=== PATIENT | female | born 1995 | race Caucasian/White ===

== ENCOUNTER 2020-06-30 12:37 | Emergency (ER) | payer OTHER ==
[~2020-06-30] VITALS: Ht 154.9 cm; Wt 99.3 kg
[2020-06-30] MEDS ORDERED: IV NORMAL SALINE 1,000ML 1,000 ML IV ONE (13:30)
[2020-06-30 13:41] LABS: BACTERIA,URINE 0 /HPF (0-FEW); BILIRUBIN,URINE NEG (NEG); CLARITY,URINE CLEAR; COLOR,URINE YELLOW; GLUCOSE,URINE NEG (NEG); NITRITE,URINE NEG (NEG); RBC,URINE OCC /HPF (0-2); SQUAMOUS EPITHELIAL CELL,UR FEW /LPF; UROBILINOGEN,URINE 0.2 mg/dL (0.2 mg/dL); WBC,URINE OCC /HPF (0-4)
[2020-06-30 13:48] LABS: BASO # 0.2 x10^3/uL (0.0-0.2); BASO % 1 % (0-3); EOS # 0.1 x10^3/uL (0.0-0.7); EOS % 1 % (0-3); HEMATOCRIT 27.2 % (36.0-47.0); LYMPH % 18 % (24-48); MEAN CORPUSCULAR HEMOGLOBIN 29 pg (25-35); MEAN CORPUSCULAR HGB CONC 33 g/dL (31-37); MEAN CORPUSCULAR VOLUME 88 fL (79-100); MONO # 0.7 x10^3/uL (0.0-1.1); MONO % 4 % (0-9); NEUT # 12.9 x10^3uL (1.8-7.7); NEUT % 76 % (31-73); PLATELET COUNT 284 x10^3/uL (140-400); RED BLOOD COUNT 3.08 x10^6/uL (3.50-5.40); RED CELL DISTRIBUTION WIDTH 12.6 % (11.5-14.5); WHITE BLOOD COUNT 16.9 x10^3/uL (4.0-11.0)
[2020-06-30 13:55] LABS: CALCIUM 8.6 mg/dL (8.5-10.1); CREATININE 0.8 mg/dL (0.6-1.0); GFR 87.4; POTASSIUM 4.2 mmol/L (3.5-5.1)
[2020-06-30 14:09] LABS: % EOS 3 % (0-5); % LYMPHS 23 % (24-48); % MONOS 3 % (0-10); % SEGS 71 % (35-66)
[2020-06-30 14:10] LABS: ANISOCYTOSIS SLIGHT; PLT ESTIMATE ADEQUATE (ADEQUATE)
--- NOTE | 2020-06-30 14:30 | RAD ---
INDICATION: Reason: heavy vaginal bleeding, dilated cervix / Spl. Instructions: / History: COMPARISON: None. TECHNIQUE: Grayscale and color ultrasound images uterus and adnexa. Transabdominal and transvaginal images obtained. Transvaginal images were needed to better visualize structures that were limited on transabdominal imaging. FINDINGS: Uterus: 81 x 55 x 38 mm. Endometrial Stripe: 8 mm. Right Ovary: 40 x 39 x 29 mm. Left Ovary: 34 x 28 x 17 mm. Vascular flow identified to bilateral ovaries. 32 mm right ovarian cyst. Nabothian cysts. IMPRESSION: * Cystic structures at the cervix which can be seen with nabothian cyst formation. * Right ovarian cyst is seen. * Endometrial stripe currently measures approximately 8 mm. Electronically signed by: Yossi Hart MD (06/30/2020 2:27 PM) [id number]
[2020-06-30 15:02] VITALS: BP 131/91
[2020-06-30] MEDS ORDERED: MEDR10TA PO (15:04)
--- NOTE | 2020-06-30 15:04 | PHYS DOC ---
Past History Past Medical History: Diabetes, Hypertension, Kidney Stones Past Surgical History: , Other Additional Past Surgical Histo: KIDNEY STONES Alcohol Use: None General Adult EDM: Chief Complaint: VAGINAL BLEEDING HPI: HPI: Patient is a 24-year-old female who presents to the emergency department with complaints of heavy vaginal bleeding for the last 4 days. Patient states she has been saturating a tampon and a pad every hour for the last 4 days. Last night she was in the bathroom when she got up off the toilet she passed out. Patient reports that she has felt dizzy with position changes. She denies any nausea, vomiting, diarrhea, abdominal pain, shortness of breath, fever, cough, or fatigue. She states she has had heavy periods for a long time but she does not currently have an DEVULCANIZER TENDER. Patient states she recently relocated to this area from [place]. She denies any irregular vaginal discharge prior to the onset of the bleeding. She denies any dysuria, hematuria, or increased urinary frequency. The patient currently denies any pain. Review of Systems: Review of Systems: Complete ROS is negative unless otherwise noted in HPI. Current Medications: Current Meds: Current Medications Medications (Trade) Dose Ordered Sig/Nicole Start Time Stop Time Status Last Admin Dose Admin Sodium Chloride 1,000 ml @ 1,000 mls/hr 1X ONCE 06/30/20 13:30 06/30/20 14:29 DC 06/30/20 13:36 1,000 MLS/HR Allergies: Allergies: Allergies Coded Allergies Type Severity Reaction Last Updated Verified No Known Drug Allergies 06/30/20 No Physical Exam: PE: See Above Constitutional: Well developed, well nourished, no acute distress, non-toxic appearance. HENT: Normocephalic, atraumatic, bilateral external ears normal, nose normal. Eyes: PERRLA, EOMI, conjunctiva normal, no discharge. Neck: Normal range of motion, no stridor. 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 Extremities: No cyanosis, ROM intact, no edema. Neurologic: Alert and oriented X 3, no focal deficits noted. Psychologic: Affect normal, judgement normal, mood normal. Current Patient Data: Labs: Laboratory Tests Test 06/30/20 13:21 06/30/20 13:25 06/30/20 13:36 Urine Collection Type U cath Urine Color Yellow Urine Clarity Clear Urine pH 5.5 Urine Specific [place] >=1.030 Urine Protein Trace (NEG-TRACE) Urine Glucose (UA) Neg mg/dL (NEG) Urine Ketones (Stick) 15 mg/dL (NEG) Urine Blood Neg (NEG) Urine Nitrite Neg (NEG) Urine Bilirubin Neg (NEG) Urine Urobilinogen Dipstick 0.2 mg/dL (0.2 mg/dL) Urine Leukocyte Esterase Neg (NEG) Urine RBC Occ /HPF (0-2) Urine WBC Occ /HPF (0-4) Urine Squamous Epithelial Cells Few /LPF Urine Bacteria 0 /HPF (0-FEW) POC Urine HCG, Qualitative hcg negative (Negative) White Blood Count 16.9 x10^3/uL (4.0-11.0) H Red Blood Count 3.08 x10^6/uL (3.50-5.40) L Hemoglobin 9.0 g/dL (12.0-15.5) L Hematocrit 27.2 % (36.0-47.0) L Mean Corpuscular Volume 88 fL (79-100) Mean Corpuscular Hemoglobin 29 pg (25-35) Mean Corpuscular Hemoglobin Concent 33 g/dL (31-37) Red Cell Distribution Width 12.6 % (11.5-14.5) Platelet Count 284 x10^3/uL (140-400) Neutrophils (%) (Auto) 76 % (31-73) H Lymphocytes (%) (Auto) 18 % (24-48) L Monocytes (%) (Auto) 4 % (0-9) Eosinophils (%) (Auto) 1 % (0-3) Basophils (%) (Auto) 1 % (0-3) Neutrophils # (Auto) 12.9 x10^3uL (1.8-7.7) H Lymphocytes # (Auto) 3.0 x10^3/uL (1.0-4.8) Monocytes # (Auto) 0.7 x10^3/uL (0.0-1.1) Eosinophils # (Auto) 0.1 x10^3/uL (0.0-0.7) Basophils # (Auto) 0.2 x10^3/uL (0.0-0.2) Segmented Neutrophils % 71 % (35-66) H Lymphocytes % 23 % (24-48) L Monocytes % 3 % (0-10) Eosinophils % 3 % (0-5) Platelet Estimate Adequate (ADEQUATE) Anisocytosis Slight Sodium Level 140 mmol/L (136-145) Potassium Level 4.2 mmol/L (3.5-5.1) Chloride Level 103 mmol/L (98-107) Carbon Dioxide Level 23 mmol/L (21-32) Anion Gap 14 (6-14) Blood Urea Nitrogen 9 mg/dL (7-20) Creatinine 0.8 mg/dL (0.6-1.0) Estimated GFR (Cockcroft-Gault) 87.4 Glucose Level 177 mg/dL (70-99) H Calcium Level 8.6 mg/dL (8.5-10.1) Vital Signs: Vital Signs Date Time Temp Pulse Resp B/P (MAP) Pulse Ox O2 Delivery O2 Flow Rate FiO2 06/30/20 14:45 105 18 160/96 (117) 99 Room Air 06/30/20 12:56 97.1 EKG: EKG: [] Radiology/Procedures: Radiology/Procedures: PROCEDURE: US PELVIS W/TV INDICATION: Reason: heavy vaginal bleeding, dilated cervix / Spl. Instructions: / History: COMPARISON: None. TECHNIQUE: Grayscale and color ultrasound images uterus and adnexa. Transabdominal and transvaginal images obtained. Transvaginal images were needed to better visualize structures that were limited on transabdominal imaging. FINDINGS: Uterus: 81 x 55 x 38 mm. Endometrial Stripe: 8 mm. Right Ovary: 40 x 39 x 29 mm. Left Ovary: 34 x 28 x 17 mm. Vascular flow identified to bilateral ovaries. 32 mm right ovarian cyst. Nabothian cysts. IMPRESSION: * Cystic structures at the cervix which can be seen with nabothian cyst formation. * Right ovarian cyst is seen. * Endometrial stripe currently measures approximately 8 mm. [] Heart Score: Risk Factors: Risk Factors: DM, Current or recent (<one month) smoker, HTN, HLP, family history of CAD, obesity. Risk Scores: Score 0 - 3: 2.5% MACE over next 6 weeks - Discharge Home Score 4 - 6: 20.3% MACE over next 6 weeks - Admit for Clinical Observation Score 7 - 10: 72.7% MACE over next 6 weeks - Early Invasive Strategies Course & Med Decision Making: Course & Med Decision Making Pertinent Labs and Imaging studies reviewed. (See chart for details) 24-year-old female presented to the emergency room with complaints of heavy vaginal bleeding for the last 4 days. Pelvic exam was conducted and gonorrhea and chlamydia swab was ordered. Pelvic ultrasound did not reveal any acute findings. There was a 32 mm right ovarian cyst. [id number] spoke with Dr. Martinez about the patient, I discussed the patient's lab results and ultrasound report with him. Dr. Martinez recommends 10 mg of Provera be prescribed for the patient twice a day while having bleeding. Will provide the patient a 30-day supply with 2 refills per his request and also provide the patient with his information for follow-up. I discussed the results and medication that will be prescribed with patient. I encouraged her to follow-up with [facility] TENDER. I will provide her with information for Dr. Martinez's office as he is local. Instructed the patient to return to the ER if she develops worsening symptoms or the bleeding does not slow down. Patient verbalized an understanding of home care, medications, follow-up, and return to ED instructions and was in agreement with the plan of care. [] Madeleine Disclaimer: Madeleine Disclaimer: This electronic medical record was generated, in whole or in part, using a voice recognition dictation system. Departure Departure: Impression: Primary Impression: Episode of heavy vaginal bleeding Additional Impression: High blood pressure Qualified Codes: I10 - Essential (primary) hypertension Disposition: 01 DC HOME SELF CARE/HOMELESS Condition: STABLE Referrals: PCP,NO (PCP) Patient Instructions: Dysmenorrhea, [id number], Hypertension, [id number] Additional Instructions: Fill the prescription and use it as directed. Follow-up with DEVULCANIZER TENDER to further address your chronic heavy vaginal bleeding. In the ER today your blood pressure was consistently elevated. I recommend that you follow-up with your primary care doctor for further treatment and management of your blood pressure. Return to the ER if your symptoms worsen or you develop a fever. Scripts Medroxyprogesterone Acetate (PROVERA) 10 Mg Tablet 1 TAB PO BID PRN for SEE COMMENTS for 30 Days, #60 TAB 2 Refills take as needed twice daily for heavy vaginal bleeding Prov: CONSTANTINE GUEVARA APRN 06/30/20 CONSTANTINE GUEVARA APRN Jun 30, 2020 15:04
[2020-07-03 21:26] LABS: CHLAMYDIA PROBE Negative (Negative)
== END 2020-06-30 15:23 | disposition home or self-care (01) ==
LOC: ER 12:37
DX: N93.8 Other specified abnormal uterine and vaginal bleeding (principal); I10 Essential (primary) hypertension; E11.9 Type 2 diabetes mellitus without complications; Z87.442 Personal history of urinary calculi; Z98.890 Other specified postprocedural states
CPT/HCPCS: 76830; 76856; 80048; 81001; 81025; 85007; 85025; 87491; 87591; 96360; 96361; 99284; J7030; 36415